=== PATIENT | female | born 1940 | race Caucasian/White ===

== ENCOUNTER → 2016-10-19 | Outpatient (CLI) | payer MEDICARE, BC ==
[~2016-10-19] MED LIST: ASPIRIN EC81 M1 PO; ATENOLOL50 MG PO; BAYER CHEWABLE81 MG PO; CALCIUM 500 +1 EAC2 PO; CIPRO PO; EMBREL INJ; FISH OIL 1,0001 EAC4; FLECTOR1 EACH TP; FOSTEUM PO; HYDROCODON-ACE1 EAC7 PO; LEVOXYL150 MC1 PO; MOBIC15 MG PO; MULTI-DAY VITAM1 TAB PO; OCUVITE EYE +1 EACH; PHENERGAN PO; PHENERGAN25 MG PO; PREMARIN0.45 MG PO; PREVACID30 MG/BOTT PO; SYNTHROID PO; TENORMIN50 MG PO; TYLENOL EXTRA500 M1 PO; VIT B1 PO; VIT B6 PO; VITAMIN B12-FO1 EACH PO; ZOFRAN PO
--- NOTE | ~2016-10-19 | MY10 ---
[facility] A Service of [facility] RADIOLOGY TEXT RESULTS PATIENT: SHILO AMADOR LOCATION: [facility] : 38 UNIT #: [id number] AGE: [address]: Ru Weaver MD SEX: F ORDER DR: [id number] [facility] [address] [place], [place] [address] [id number] O MR#: [id number] Acc #: [id number] NAME: SHILO AMADOR : 1940 SEX: F STUDY DATE/TIME: 10/19/2016 12:01 UNIT: [facility] ROOM: STUDY DESCRIPTION: MY Mammogram Screen Uni Dig Rt Attending Physician: Ru Weaver M.D. Referring Physician: Ru Weaver M.D. Ordering Physician: Ru Weaver M.D. Primary Care Physician: Kala Cano M.D. MEDICAL IMAGING REPORT This report is preliminary unless electronic signature is present EXAM Right digital screening mammogram with CAD. COMPARISON STUDIES 10/04/2015, 10/11/2014, 09/19/2014, 08/23/2014, 06/11/2010, 01/19/2008. HISTORY Breast cancer screening. 76-year-old asymptomatic female with a history of left mastectomy for breast cancer in September 2014. She denies current complaints. FINDINGS There are scattered fibroglandular densities in the right breast. There are no suspicious findings in the right breast. IMPRESSION 1. Post left mastectomy for breast cancer. 2. No mammographic evidence of malignancy in the right breast. Continued annual screening mammography and clinical breast exam are recommended. Patients over the age of 40 are entered into a reminder system with target due date for the next mammogram. A result letter will also be sent to the patient. BIRADS: 2 Benign finding. Dictated by... Nabeel Mcallister M.D. THIS IS AN ELECTRONICALLY VERIFIED REPORT Nabeel Mcallister M.D. at 10/19/2016 8:55 PM [facility] A Service of [facility] RADIOLOGY TEXT RESULTS PATIENT: SHILO AMADOR LOCATION: [facility] : 39 UNIT #: [id number] AGE: [address]: Ru eWaver MD SEX: F ORDER DR: CHARLI/daniel TD: 10/19/2016 16:12 JOB #: [id number] MEDICAL IMAGING REPORT COPY
== END | disposition home or self-care (01) ==
LOC: CWCC 11:50
DX: Z12.31 Encounter for screening mammogram for malignant neoplasm of breast (principal); Z85.3 Personal history of malignant neoplasm of breast; Z90.12 Acquired absence of left breast and nipple
CPT/HCPCS: G0202

== ENCOUNTER 2017-01-30 17:21 | Emergency (ER) | payer MEDICARE, BC ==
--- NOTE | ~2017-01-30 | CT52 ---
[facility]. [facility] A Service of [facility] & [facility] RADIOLOGY TEXT RESULTS PATIENT: SHILO AMADOR LOCATION: SED : 38 UNIT #: [id number] AGE: [address]: Cullen Segura MD SEX: F ORDER DR: [id number] [address] [address] [id number] E MR#: [id number] Acc #: [id number] NAME: SHILO AMADOR : 1940 SEX: F STUDY DATE/TIME: 01/30/2017 17:51 UNIT: SED ROOM: STUDY DESCRIPTION: CT Cervical Spine Wo Cont Attending Physician: Cullen Segura M.D. Ordering Physician: Cullen Segura M.D. Primary Care Physician: Kala Cano M.D. MEDICAL IMAGING REPORT This report is preliminary unless electronic signature is present. EXAM CT of the cervical spine without contrast dated 01/30/2017. COMPARISON None. HISTORY Patient fell and hit head of the bulb with bruising in the right side of the head, neck pain. It happened today. The CT exam was performed with one or more of the following radiation dose reduction techniques: automatic exposure control, adjustment of mA and/or kV according to patient size, and iterative reconstruction. FINDINGS CT of the cervical spine was obtained without contrast in the axial plane followed by sagittal and coronal reformats. C1-2 and C7-T1 junctions are intact. No obvious fracture or subluxation is seen. Degenerative disc disease and facet changes are noted at some of the levels of the cervical spine. There is mild inflammatory ground-glass density in the right upper lobe. Pre and paravertebral soft tissues do not demonstrate any significant abnormality. C2-3: Central focal protrusion with mild bilateral facet changes particularly in the left. Borderline size to mild canal stenosis without any neural foraminal narrowing. C3-4: Concentric disc bulge with severe right and mild left facet hypertrophic change. Borderline-sized canal without any significant neural foraminal narrowing. C4-5: Disc osteophyte complex with right uncinate spur. [id number]-bz-lrkwnifp bilateral facet hypertrophic changes are noted with moderate right neural STS. [facility] A Service of [facility] & [facility] RADIOLOGY TEXT RESULTS PATIENT: SHILO AMADOR LOCATION: [facility] : 38 UNIT #: [id number] AGE: [address]: Cullen Segura MD SEX: F ORDER DR: foraminal narrowing. Borderline-sized canal. C5-6: Concentric disc bulge with central protrusion and mild bilateral facet changes. Borderline-sized canal without neural foraminal narrowing. C6-7, C7-T1: Mild disc bulge but otherwise unremarkable. IMPRESSION 1. No acute fracture or subluxation. 2. Degenerative disc disease is noted at C2-3 and C5-6 with central protrusions and mild mass effect on the adjacent thecal sac. 3. Facet hypertrophic changes are at multiple levels, relatively worse on the right C3-4 facet joint. 4. Right C4-5 neural foraminal narrowing is seen. Correlate with right C5 radiculopathy. Dictated by... Saray Dow M.D. THIS IS AN ELECTRONICALLY VERIFIED REPORT Saray Dow M.D. at 01/31/2017 8:43 PM CPR/cmm TD: 01/31/2017 07:16 JOB #: [id number] MEDICAL IMAGING REPORT Page 1 of 1
--- NOTE | ~2017-01-30 | CT71 ---
[facility] A Service of [facility] & [facility] RADIOLOGY TEXT RESULTS PATIENT: SHILO AMADOR LOCATION: SED : 38 UNIT #: [id number] AGE: [address]: Cullen Segura MD SEX: F ORDER DR: [id number] [address] [address] [id number] E MR#: [id number] Acc #: [id number] NAME: SHILO AMADOR : 1940 SEX: F STUDY DATE/TIME: 01/30/2017 18:11 UNIT: SED ROOM: STUDY DESCRIPTION: CT Head Wo Contrast Attending Physician: Cullen Segura M.D. Ordering Physician: Cullen Segura M.D. Primary Care Physician: Kala Cano M.D. MEDICAL IMAGING REPORT This report is preliminary unless electronic signature is present. EXAM CT head without contrast dated 01/30/2017. COMPARISON CT head without contrast dated 03/14/2012. HISTORY Patient fell and hit head on no wall with bruising in the right side of the head. Right side neck pain. The CT exam was performed with one or more of the following radiation dose reduction techniques: automatic exposure control, adjustment of mA and/or kV according to patient size, and iterative reconstruction. FINDINGS CT of the head was obtained without contrast in the axial plane. There is a moderate right hematoma in the right side of the forehead along the anterolateral aspect extending towards the scalp. No underlying fracture. The hematoma measures about 1.4 cm in thickness and 7 to 7.5 mm in greatest length. Age-appropriate parenchymal changes are noted with atherosclerotic disease and plaques in bilateral ICA and bilateral vertebral arteries particularly in the right vertebral artery. Minimal hypodensity in the periventricular white matter cannot be completely excluded but the remaining brain appears to be without any significant abnormality. Paranasal sinuses, mastoids are well-aerated. Imaged orbits of the ocular structures do not demonstrate any significant abnormality. IMPRESSION 1. Right anterolateral forehead and adjacent frontal scalp hematoma which measures up to 1.4 cm in thickness. No underlying acute displaced fracture or acute intracranial hemorrhage. The brain itself does not demonstrate any significant abnormality. [facility] A Service of [facility] & [facility] RADIOLOGY TEXT RESULTS PATIENT: SHILO AMADOR LOCATION: [facility] : 38 UNIT #: [id number] AGE: [address]: Cullen Segura MD SEX: F ORDER DR: Dictated by... Saray Dow M.D. THIS IS AN ELECTRONICALLY VERIFIED REPORT Saray Dow M.D. at 01/31/2017 8:43 PM CPR/cmm TD: 01/31/2017 07:13 JOB #: [id number] MEDICAL IMAGING REPORT Page 1 of 1
[~2017-01-30 17:21] MED LIST changes: -ATENOLOL50 MG PO; -BAYER CHEWABLE81 MG PO; -FISH OIL 1,0001 EAC4; -HYDROCODON-ACE1 EAC7 PO; -MOBIC15 MG PO; -OCUVITE EYE +1 EACH; -SYNTHROID PO; -VITAMIN B12-FO1 EACH PO
[2017-01-30] MEDS ORDERED: HYDROCODON-ACE1 EAC7 PO (17:25)
[2017-01-30] MEDS ORDERED: MOBIC15 MG PO (17:25)
[2017-01-30] MEDS ORDERED: BAYER CHEWABLE81 MG PO (17:26)
[2017-01-30] MEDS ORDERED: OCUVITE EYE +1 EACH (17:26)
[2017-01-30] MEDS ORDERED: SYNTHROID PO (17:26)
[2017-01-30] MEDS ORDERED: ATENOLOL50 MG PO (17:26)
[2017-01-30] MEDS ORDERED: FISH OIL 1,0001 EAC4 (17:27)
[2017-01-30] MEDS ORDERED: VITAMIN B12-FO1 EACH PO (17:27)
== END 2017-01-30 19:34 | disposition home or self-care (01) ==
LOC: SED 17:21
DX: S00.93XA Contusion of unspecified part of head, initial encounter (principal); W01.198A Fall on same level from slipping, tripping and stumbling with subsequent striking against other object, initial encounter; Y92.9 Unspecified place or not applicable
CPT/HCPCS: 70450; 72125; 99283

== ENCOUNTER 2017-03-06 06:42 | Emergency (ER) | payer MEDICARE, BC ==
[~2017-03-06] VITALS: Ht 167.6 cm; Wt 72.1 kg
[~2017-03-06 06:42] MED LIST changes: +ATENOLOL50 MG PO; +BAYER CHEWABLE81 MG PO; +FISH OIL 1,0001 EAC4; +HYDROCODON-ACE1 EAC7 PO; +MOBIC15 MG PO; +OCUVITE EYE +1 EACH; +SYNTHROID PO; +VITAMIN B12-FO1 EACH PO
== END 2017-03-06 07:32 | disposition home or self-care (01) ==
LOC: SED 06:42
DX: S00.81XA Abrasion of other part of head, initial encounter (principal); K21.9 Gastro-esophageal reflux disease without esophagitis; E03.9 Hypothyroidism, unspecified; Y33.XXXA Other specified events, undetermined intent, initial encounter; Y92.009 Unspecified place in unspecified non-institutional (private) residence as the place of occurrence of the external cause
CPT/HCPCS: 99283